=== PATIENT | female | born 1960 | race Caucasian/White ===

== ENCOUNTER 2019-04-05 14:41 | Observation (INO) | payer BC ==
[2019-04-05] MEDS ORDERED: Nitroglycerin 2% Ointment 1 INCH/1 GM Packet ONE (15:09)
[2019-04-05 15:59] LABS: Troponin I Less than 0.010 ng/mL (< 0.028)
[2019-04-05] MEDS ORDERED: Ondansetron ODT 4 MG TAB SL PRN (17:35)
[2019-04-05] MEDS ORDERED: Ondansetron PF 4 MG/2 ML Vial IVP PRN (17:35)
[2019-04-05 17:45] VITALS: BMI 26.3
[2019-04-05] MEDS ORDERED: Senokot S 8.6-50 MG TAB PO PRN (18:19)
[2019-04-05] MEDS ORDERED: Melatonin 3 MG TAB PO PRN (18:22)
[2019-04-05] MEDS: Primidone 50 MG TAB PO SCH (21:07)
[2019-04-05] MEDS: Famotidine 20 MG TAB PO SCH (21:07)
--- NOTE | 2019-04-06 03:17 | HP ---
CHIEF COMPLAINT: Chest pain. HISTORY OF PRESENT ILLNESS: Ms. Yañez is a 59-year-old female, who presented to the emergency room of [facility], complaining of chest pain. Reports that chest pain started earlier this morning, is intermittent, radiates up to her left arm, back and neck. Reports that she feels like she cannot take a deep breath. Reports the pain is most severe in the substernal area associated with dyspnea on exertion. Denies any diaphoresis. EKG in the emergency room showed sinus martha, beats per minute 55, ST segment T-waves normal. In the emergency room in [place], initial EKG showed T-waves inverted in V1, V2, V3. She was given aspirin and nitroglycerin and sent to [facility] for evaluation and admission. PAST MEDICAL HISTORY: Pertinent for hypertension, has had breast cancer treated with chemotherapy, radiation 12 years ago. PAST SURGICAL HISTORY: Lumpectomy x2, cholecystectomy. SOCIAL HISTORY: Drinks socially about twice a month. Denies any drug use. She is a former tobacco smoker, smokes cigarettes. Quit smoking several years ago. ALLERGIES: NONE. CURRENT MEDICATIONS: 1. Lisinopril 40 mg p.o. once a day. 2. Metoprolol 50 mg p.o. daily. 3. Primidone 50 mg p.o. b.i.d. 4. Thyroid 30 mg p.o. q.a.m. REVIEW OF SYSTEMS: Chest pain substernal with radiation to left arm, neck across chest, shortness of breath. Denies fever or chills. Denies any palpitations. Denies diaphoresis. All systems reviewed and negative unless mentioned in the HPI. PHYSICAL EXAMINATION: VITAL SIGNS: Temperature is 97.7, pulse is 63, respirations 20, PO2 sats are 100% on room air, blood pressure is 139/63. CONSTITUTIONAL: The patient is alert and oriented to person, place, and time. Appears in no distress. HEENT: Eyes; pupils are equal, round, and reactive to light. Extraocular muscles are intact. ENT; mouth exam is normal. Mucous membranes are moist. CARDIOVASCULAR: S1 and S2. Heart sounds are normal. RESPIRATORY/CHEST: Breath sounds are clear. Chest expansion is equal. NECK: Normal range of motion. Trachea is midline. ABDOMEN: Nontender. Bowel sounds are heard. BACK: Normal inspection and normal range of motion. EXTREMITIES: Upper extremities, normal range of motion. Motor strength is normal. Radial pulses equal. Lower extremity, normal inspection. Normal range of motion. Pedal pulses equal bilaterally. There is no calf tenderness on palpation. NEUROLOGIC: The patient is alert and oriented to person, place, and time. Speech is normal. SKIN: Warm, dry, normal in color. Chest x-ray shows no acute process. PERTINENT LABORATORY DATA: White blood cell count 4.9, hemoglobin 12.1, hematocrit 36.7, and platelet count is 261. Sodium is 138, potassium 4.0, chloride 104, gap is 14, BUN is 19, creatinine is 0.86. Estimated GFR 68, magnesium is 2.5, calcium is 9.5. Liver enzymes are unremarkable. ASSESSMENT AND PLAN: 1. Chest pain. Troponins will be trended. Stress test with nuclear medicine ordered. We will keep the patient on heart monitor overnight. 2. Hypertension we will restart home medications. 3. Hypothyroidism. We will restart home medications. Check TSH and free T3 and T4. 4. Essential tremor. Continue home medication. 5. Deep venous thrombosis and gastrointestinal prophylaxis will be started. 6. Hospital course is dependent on clinical findings. Job ID: [id number]
[2019-04-06 06:07] LABS: #Eosinphils 0.4 thou/uL (0.0-0.7); #Lymphocytes 0.8 thou/uL (1.20-3.40); #Monocytes 0.5 thou/uL (0.11-0.59); %Basophils 0.9 % (0.0-1.0); %Eosinophils 7.5 % (0.0-10.0); %Lymphocytes 16.3 % (21.0-51.0); %Monocytes 11.1 % (0.0-10.0); %Neutrophils 64.2 % (42.0-75.0); Hemoglobin 11.7 g/dL (12.0-16.0); Mean Corpuscular HGB CONC 34.5 g/dL (32.0-36.0); Mean Corpuscular Hemoglobin 31.7 pg (27.0-31.0); Mean Platelet Volume 6.2 fL (7.4-10.4); Platelet Count 228 thou/uL (130-400); RBC Distribution Width 11.6 % (11.5-14.5); Red Blood Cell (RBC) Count 3.68 mill/uL (4.20-5.40); White Blood Cell (WBC) Count 4.7 thou/uL (4.8-10.8)
[2019-04-06 06:34] LABS: Anion Gap 9 mmol/L (10-20); BUN (Urea Nitrogen) 21 mg/dL (9.8-20.1); Calc. Creatinine Clearance 80 mL/min (70-130); Calcium 9.5 mg/dL (7.8-10.44); Carbon Dioxide 27 mmol/L (22-29); Cardiac Risk 3.8 (Less than 4.5); Chloride 105 mmol/L (98-107); Cholesterol 192 mg/dl (< 200 Desired); Estimated GFR-MDRD 63; Glucose 99 mg/dL (70-105); HDL Cholesterol 50 mg/dL (>60 Neg Risk); LDL Cholesterol, Calculated 115 mg/dL; Lipase 53 U/L (8-78); Potassium 4.3 mmol/L (3.5-5.1); Sodium 137 mmol/L (136-145); Triglycerides 137 mg/dL (Less than 150)
[2019-04-06 06:51] LABS: Free T4 (Free Thyroxine) 0.87 ng/dL (0.70-1.48); Thyroid Stimulating Hormone 1.7724 uIU/mL (0.35-4.94)
[2019-04-06] MEDS ORDERED: Aspirin 325 MG TAB PO SCH (09:00)
[2019-04-06] MEDS ORDERED: Enoxaparin Sodium 40 MG/0.4 ML SYRINGE SC SCH (09:00)
[2019-04-06] MEDS ORDERED: Lisinopril 20 MG TAB PO SCH (09:00)
[2019-04-06] MEDS ORDERED: Thyroid 30 MG TAB PO SCH (09:00)
[2019-04-06] MEDS ORDERED: ADENOSINE 60 MG/20 ML VIAL ONE (09:03)
[2019-04-06] MEDS: Famotidine 20 MG TAB PO SCH (10:25)
[2019-04-06] MEDS: Primidone 50 MG TAB PO SCH (10:25)
--- NOTE | 2019-04-06 10:26 | NM ---
NUCLEAR MEDICINE CARDIAC MYOCARDIAL PERFUSION SPECT EJECTION FRACTION STUDY WALL MOTION CINE: DATE: 04/06/2019 HISTORY: 59-year-old female with hypertension and history of tobacco use presents with chest pain. TECHNIQUE: Number of days:1 Rest study: Technetium 99m-sestamibi (Cardiolite) dose:11.0 mCi Pharmacologic stress: Adenosine dose:42.6 mg Stress study: Technetium 99m-sestamibi (Cardiolite) dose:33.0 mCi FINDINGS: Cardiac (myocardial perfusion) SPECT There are no fixed or reversible myocardial perfusion defects. Ejection fraction study Left ventricular EF = 82% Wall motion cine Normal IMPRESSION: Normal.
[2019-04-06 12:03] VITALS: BP 125/59; TEMP 97.7
--- NOTE | 2019-04-06 17:04 | DIS ---
DATE OF ADMISSION: 04/05/2019 DATE OF DISCHARGE: 04/06/2019 CHIEF COMPLAINT ON ADMISSION: Chest pain. DISCHARGE DIAGNOSES: 1. Chest pain, noncardiac, MPI negative for ischemia, I suspect esophageal spasm or reflux. 2. Hypertension. 3. Hypothyroidism. 4. Essential tremor. BRIEF HOSPITAL COURSE: The patient is a pleasant 59-year-old female with past medical history significant for tobacco abuse, who quit 10 years ago, hypertension, and hypothyroidism, who presented to the hospital with complaints of chest pain. The patient states she was sleeping when the chest pain came on. It was sharp and radiated toward the back. She felt as if she could not get a deep breath in. It was nonexertional. She had no associated diaphoresis, palpitations, or dizziness. She presented to the ER for further workup and treatment. Her EKG was normal and showed no evidence of ischemia to arrival in the [facility]. She was transferred from [place]. Her serial enzymes were negative. The patient underwent nuclear stress test, which showed normal left ventricular systolic function and no evidence of ischemia. Her chest discomfort has steadily improved. She has tolerated a full diet. She has no nausea or vomiting. DISCHARGE DISPOSITION: Home. DISCHARGE CONDITION: Stable. DISCHARGE INSTRUCTIONS AND FOLLOWUP: I have instructed the patient that she needs to follow up with her primary care physician. I have placed her on Nexium daily as a new home medication, as I suspect her symptoms may be GI related. Other possibility does include coronary vasospasms. In any case, the patient's symptoms have resolved, she feels improved, ACS was ruled out, and stress test is negative for ischemia. She will be discharged home in good condition today. She will continue her other home medications and aggressive risk factor modification. Job ID: [id number]
--- NOTE | 2019-04-09 01:07 | EKG ---
Test Reason : CHEST PAIN Blood Pressure : / mmHG Vent. Rate : 055 BPM Atrial Rate : 055 BPM P-R Int : 182 ms QRS Dur : 080 ms QT Int : 406 ms P-R-T Axes : 050 046 060 degrees QTc Int : 388 ms Sinus bradycardia Otherwise normal ECG Confirmed by MARIA TERESA GONZALEZ ([id number]), newspaper editor managing MARIBETH VALERIO ([id number]) on 04/09/2019 1:06:47 AM Referred By: Confirmed By:MARIA TERESA GONZALEZ
== END 2019-04-06 13:28 | disposition home or self-care (01) ==
LOC: ERS 14:41 → 2SW 17:40
PROVIDERS: ADMIT Internal Medicine; ATTEND Internal Medicine
DX: R07.2 Precordial pain (principal); I10 Essential (primary) hypertension; E03.9 Hypothyroidism, unspecified; G25.0 Essential tremor; R00.1 Bradycardia, unspecified; Z87.891 Personal history of nicotine dependence; Z88.5 Allergy status to narcotic agent; Z88.6 Allergy status to analgesic agent; Z79.899 Other long term (current) drug therapy
CPT/HCPCS: 36415; 78452; 80048; 80061; 83690; 84439; 84443; 84481; 85025; 93005; 93017; 96372; 99406; A9500; G0378; J0153; J1650

== ENCOUNTER 2020-04-24 09:14 | Outpatient (CLI) | payer OTHER ==
--- NOTE | 2020-04-24 10:41 | MMO ---
Bilateral MAMMO Bilat Diag DDI+LIS. CLINICAL HISTORY: Patient is 60 years old and is seen for diagnostic exam and lump or thickening in the right breast. The patient has the following family history of breast cancer: maternal grandmother, malignant (generic). The patient has a history of invasive ductal right breast carcinoma at age 47. The patient has a history of right Ultrasound Guided Core Biopsy at age 47 - malignant and right Lumpectomy at age 47 - malignant. VIEWS: The views performed were: bilateral craniocaudal with tomosynthesis; bilateral mediolateral oblique with tomosynthesis; bilateral mediolateral with tomosynthesis; right mediolateral oblique spot compression with tomosynthesis; and right exaggerated craniocaudal spot compression with tomosynthesis. FILMS COMPARED: The present examination has been compared to prior imaging studies performed at [place] on 04/27/2012 and 04/24/2020. This study has been interpreted with the assistance of computer-aided detection. MAMMOGRAM FINDINGS: There are scattered fibroglandular densities. There is a new irregular mass seen in the right breast at 10 o'clock. US of the 10:00 right breast shows a shadowing mass corresponding to mammo finding. In the left breast, there are no suspicious masses, calcifications or areas of architectural distortion. IMPRESSION: NEW MASS IN THE RIGHT BREAST IS HIGHLY SUGGESTIVE OF MALIGNANCY. AN ULTRASOUND-GUIDED BREAST BIOPSY IS RECOMMENDED. THE RESULTS OF THIS EXAM WERE SENT TO THE PATIENT. ACR BI-RADS Category 5 - Highly suggestive of malignancy - appropriate action should be taken D/W pt in person @ 10:32 am MAMMOGRAPHY NOTE: 1. A negative mammogram report should not delay a biopsy if a dominant of clinically suspicious mass is present. 2. Approximately 10% to 15% of breast cancers are not detected by mammography. 3. Adenosis and dense breasts may obscure an underlying neoplasm. Reported by: RAMIRO HOWARD MD Electonically Signed: [id number]
--- NOTE | 2020-04-24 10:51 | ULT ---
RIGHT BREAST ULTRASOUND: HISTORY: Palpable mass at the 10 o'clock position of the right breast. The patient has had right breast cance r in the past. FINDINGS: Correlation is made with the mammogram of the same day. Sonographic evaluation of the region of palpable concern demonstrates a shadowing a 9 mm shadowing ma ss at the 10 o'clock position of the right breast 6 cm from the nipple and corresponding to the mammo graphic finding. Sonographic evaluation of the right axilla demonstrates no abnormal lymph nodes. IMPRESSION: BIRADS category 5: highly suggestive of malignancy. Ultrasound-guided biopsy is recommended. Discussed in person with the patient at 10:32 a.m. CODE CR POS: OFF
--- NOTE | 2020-04-24 14:03 | MMO ---
FILMS COMPARED: The present examination has been compared to prior imaging studies performed at 04/27/2012 and 04/24/2020. MAMMOGRAM FINDINGS: There is a new biopsy clip seen in the right breast at 10 o'clock. IMPRESSION: NEW BIOPSY CLIP IN THE RIGHT BREAST IS CONFIRMED UTILIZING POST PROCEDURE MAMMOGRAM. Reported by: RAMIRO HOWARD MD Electonically Signed: [id number]
--- NOTE | 2020-04-24 15:00 | ULT ---
Exam: Right breast biopsy with ultrasound guidance HISTORY: Past medical history of right breast cancer. Patient had a palpable lump has occurred in the last 2-3 weeks. COMPARISON: 04/24/2020 FINDINGS: Successful right breast biopsy with ultrasound guidance. A total of 4 14-gauge core biopsy samples were obtained. Lesional tissue was placed directly in formalin. Postbiopsy clip was placed. TECHNIQUE: Consent obtained to perform a right breast biopsy with ultrasound guidance. Right breast w as prepped and draped in sterile fashion. 1% lidocaine, buffered with sodium bicarbonate was used for local anesthesia. Under no definite guidance, a total of 4, 14-gauge core biopsy samples were obt ained. Lesional tissue was placed directly in formalin. Biopsy clip was placed under ultrasound guidance. Postprocedure mammogram demonstrates appropriate clip position. IMPRESSION: Successful right breast biopsy with ultrasound guidance. Final pathologic diagnosis is pe nding.
== END 2020-04-24 09:15 | disposition home or self-care (01) ==
LOC: BICMAMMO 09:14
PROVIDERS: ATTEND Family Medicine
DX: N63.11 Unspecified lump in the right breast, upper outer quadrant (principal); C50.411 Malignant neoplasm of upper-outer quadrant of right female breast
CPT/HCPCS: 19083; 77066; 88305; 88341; 88342; G0279

== ENCOUNTER 2020-05-09 13:25 | Outpatient (CLI) | payer OTHER ==
--- NOTE | 2020-05-09 14:47 | CT ---
CT CHEST WITHOUT CONTRAST: 05/09/20 Axial tomograms obtained through chest without contrast. Low dose screening protocol was followed. INDICATION: Lung cancer screening. History of smoking for many years/nicotine dependence. FINDINGS: The lungs show mild chronic change with hyperexpansion and mild peripheral interstitial thickening. N o evidence of lung mass or nodule. No evidence of effusion or infiltrate. Mediastinum unremarkable. Upper abdomen unremarkable. Osseous structures unremarkable. IMPRESSION: Lung RADS 2 - benign findings. Recommend annual low dose screening chest CT. POS: [facility]
== END 2020-05-09 13:26 | disposition home or self-care (01) ==
LOC: BICCT 13:25
PROVIDERS: ATTEND Internal Medicine Hematology & Oncology
DX: Z12.2 Encounter for screening for malignant neoplasm of respiratory organs (principal); Z87.891 Personal history of nicotine dependence
CPT/HCPCS: G0297

== ENCOUNTER 2020-06-21 06:31 | Outpatient (CLI) | payer BC, OTHER ==
[2020-06-21 14:09] LABS: #Eosinphils 0.2 thou/uL (0.0-0.7); #Monocytes 0.5 thou/uL (0.11-0.59); #Neutrophils 2.8 thou/uL (1.40-6.50); %Basophils 0.8 % (0.0-1.0); %Eosinophils 5.6 % (0.0-10.0); %Lymphocytes 21.5 % (21.0-51.0); %Monocytes 10.5 % (0.0-10.0); %Neutrophils 61.7 % (42.0-75.0); Mean Corpuscular HGB CONC 34.2 g/dL (32.0-36.0); Mean Corpuscular Hemoglobin 32.7 pg (27.0-31.0); Mean Corpuscular Volume 95.6 fL (78.0-98.0); Mean Platelet Volume 6.7 fL (7.4-10.4); Platelet Count 264 thou/uL (130-400); RBC Distribution Width 11.9 % (11.5-14.5); Red Blood Cell (RBC) Count 3.99 mill/uL (4.20-5.40); White Blood Cell (WBC) Count 4.5 thou/uL (4.8-10.8)
[2020-06-21 14:44] LABS: Anion Gap 17 mmol/L (10-20); BUN (Urea Nitrogen) 13 mg/dL (9.8-20.1); Calc. Creatinine Clearance 0 mL/min (70-130); Calcium 9.4 mg/dL (7.8-10.44); Carbon Dioxide 22 mmol/L (22-29); Chloride 105 mmol/L (98-107); Estimated GFR-MDRD 69; Glucose 92 mg/dL (70-105); Potassium 4.7 mmol/L (3.5-5.1); Sodium 139 mmol/L (136-145)
[2020-06-22 14:47] LABS: SARS-CoV-2 MS2 Positive; SARS-CoV-2 N Gene Negative; SARS-CoV-2 S Gene Negative; SARS-CoV-2 by NAA Not Detected (NotDetected); SARS-CoV-2 orf1ab Negative
--- NOTE | 2020-06-24 15:40 | EKG ---
Test Reason : Blood Pressure : / mmHG Vent. Rate : 053 BPM Atrial Rate : 053 BPM P-R Int : 154 ms QRS Dur : 076 ms QT Int : 418 ms P-R-T Axes : 027 029 053 degrees QTc Int : 392 ms Sinus bradycardia Otherwise normal ECG No previous ECGs available Confirmed by ELISABET LOPEZ M.D. ([id number]) on 06/24/2020 3:40:06 PM Referred By: DEBBIE Confirmed By:ELISABET LOPEZ M.D.
== END 2020-06-21 06:32 | disposition home or self-care (01) ==
LOC: LABBT 06:31
PROVIDERS: ATTEND Specialist
DX: Z01.818 Encounter for other preprocedural examination (principal); Z20.828 Contact with and (suspected) exposure to other viral communicable diseases; C50.911 Malignant neoplasm of unspecified site of right female breast
CPT/HCPCS: 80048; 85025; 87635; 93005; 93010; U0003

== ENCOUNTER 2020-06-25 07:33 | Day surgery (SDC) | payer BC ==
[2020-06-21 10:21] VITALS: BMI 27.1
[2020-06-25] MEDS ORDERED: Acetaminophen 500 MG TAB ONE (09:10)
[2020-06-25] MEDS ORDERED: Ketorolac Tromethamine 30 MG/ML VIAL ONE (09:11)
[2020-06-25] MEDS ORDERED: Fentanyl 100 MCG/2 ML VIAL ONE ×2 (09:35→11:07)
--- NOTE | 2020-06-25 10:16 | NM ---
Radionucleotide lymphoscintigraphy right breast HISTORY: Right breast cancer. FINDINGS: Patient was injected with a total volume 1 cc containing 430 uCi technetium 99m filtered zhou lfur colloid intradermally at these periareolar 12:00, 3:00, 6:00, and 9:00 right breast. Imaging performed. Immediate images show an intense focus of uptake over the axillary tail of the rig ht breast. Adjacent, more subtle foci of uptake are also present at the superior aspect of the breast extending to the axillary tail. Patient tolerated the procedure well and was sent to day surgery in good condition. IMPRESSION : [place] lymph node axillary tail right breast.
[2020-06-25] MEDS ORDERED: Isosulfan Blue 50 MG/5 ML VIAL ONE (11:04)
[2020-06-25] MEDS ORDERED: Lidocaine 1% w/Epinephrine 1:100K 20 ML VIAL ONE (11:04)
[2020-06-25] MEDS ORDERED: Bupivacaine 0.25% HCL 30 ML VIAL ONE (11:04)
[2020-06-25] MEDS ORDERED: Ondansetron PF 4 MG/2 ML Vial ONE ×2 (13:40→14:19)
[2020-06-25] MEDS ORDERED: Lidocaine 1% PF 5 ML VIAL ONE (14:19)
[2020-06-25] MEDS ORDERED: EPHEDRINE 25 MG/5 ML SYRINGE ONE (14:19)
[2020-06-25] MEDS ORDERED: Dexamethasone 20 MG/5 ML VIAL ONE (14:19)
[2020-06-25] MEDS ORDERED: PROPOFOL 200 MG/20 ML VIAL ONE (14:19)
[2020-06-25] MEDS ORDERED: Glycopyrrolate 0.2 MG/ML 5 ML SYRINGE ONE (14:19)
--- NOTE | 2020-06-26 13:15 | OP ---
DATE OF PROCEDURE: 06/25/2020 PREOPERATIVE DIAGNOSIS: Ultrasound-guided needle localization, right breast needle localized lumpectomy, right axillary sentinel lymph node biopsy. ANESTHESIA: General endotracheal. INDICATIONS: Patient is a 60-year-old white female. She had previously undergone right breast cancer surgery with a lumpectomy and sentinel lymph node biopsy performed through the same incision in the upper outer right breast and axilla. She was recently found to have a recurrent malignancy very near to the prior operative site. After discussion of options, she preferred to proceed with a repeat lumpectomy and sentinel lymph node biopsy. It was determined that she would likely be able to tolerate an appropriate course of postoperative radiation therapy. DESCRIPTION OF OPERATION: Informed consent was obtained. Patient did undergo lymphoscintigraphy, which clearly demonstrated sentinel lymph nodes within the right axilla. Right breast was prepped with ChloraPrep and draped in a sterile fashion to include the axilla. The area of the malignancy within the upper outer right breast was marked on the skin in a grid fashion. I then identified the areas of the sentinel nodes with the Neoprobe. I had hoped to potentially use her prior incision to again perform the lumpectomy and sentinel node biopsy, but the confirmation was such that it did not work well nor would it work well to utilize a single incision for both procedures and I therefore decided to perform the two procedures through two separate incisions. Attention was turned to the axilla. Local anesthetic was infiltrated and a transverse incision was created at the inferior aspect of the axilla. Dissection was carried through skin and subcutaneous tissue and into the axilla. Neoprobe was utilized to identify areas of maximum radio intensity. I was also able to identify blue dye within the axilla. I carefully dissected three separate sentinel lymph nodes. All investing tissue was divided between clamps and 3-0 silk ties and the nodes were passed off the field. These were submitted for permanent evaluation. None of them appeared to be grossly abnormal. The wound was closed in layers with 3-0 and 4-0 Monocryl and additional local anesthetic was infiltrated during closure. Dermabond was placed externally. Attention was turned to the breast. Ultrasound was utilized to place a localizing needle in a medial to lateral fashion through the identified malignancy. A skin incision was created based on needle insertion site. Dissection carried through skin and subcutaneous tissue. I continued to use ultrasound through the operation to confirm the location of the malignancy relative to the dissection. A wide core of tissue was obtained around the localizing wire and the specimen was removed intact. Marking sutures were placed for tissue orientation and it is submitted for mammogram. This showed removal of the clip within the specimen. The wound was irrigated and meticulous hemostasis was obtained. The wound was closed in layers with 3-0 and 4-0 Monocryl and Dermabond was placed externally. Additional local anesthetic was infiltrated during closure. There were no complications with either portion of the procedure. She tolerated it well and was taken to recovery room in stable condition. Job ID: [id number]
== END 2020-06-25 14:50 | disposition home or self-care (01) ==
LOC: SDC 07:33
PROVIDERS: ATTEND Specialist
PROC: 07B50ZX Excision of Right Axillary Lymphatic, Open Approach, Diagnostic (ICD-10-PCS; principal; 2020-06-25)
PROC: 0HBT0ZZ Excision of Right Breast, Open Approach (ICD-10-PCS; principal; 2020-06-25)
DX: C50.411 Malignant neoplasm of upper-outer quadrant of right female breast (principal); C77.3 Secondary and unspecified malignant neoplasm of axilla and upper limb lymph nodes; K21.9 Gastro-esophageal reflux disease without esophagitis; Z17.0 Estrogen receptor positive status [ER+]; Z87.891 Personal history of nicotine dependence; Z79.899 Other long term (current) drug therapy; Z88.5 Allergy status to narcotic agent; Z88.6 Allergy status to analgesic agent
CPT/HCPCS: 76098; 78195; 88307; 88342; A9541; J0690; J1100; J1885; J2405; J2704; J3010; Q9968; S0020

== ENCOUNTER 2020-07-18 08:37 | Outpatient (CLI) | payer BC ==
--- NOTE | 2020-07-18 11:25 | MRI ---
MRI LEFT SHOULDER: DATE: 07/18/2020. PROVIDED CLINICAL HISTORY: Left shoulder pain. FINDINGS: Evaluation is limited by patient motion. There is high-grade partial thickness undersurface tearing involving the posterior distal supraspinat us tendon at the footplate. The components of the rotator cuff appear otherwise intact. The long he ad biceps tendon appears intact and normally located. The glenoid labrum and glenohumeral articular cartilage are suboptimally evaluated in the absence of joint distention. There is signal alteration in the region of the superior labrum suspicious for a S LAP tear. There is a small glenohumeral joint effusion. There is noncircumscribed patchy signal alt eration on fluid-sensitive sequences about the axillary recess with a somewhat thickened and indistin ct appearance to the inferior glenohumeral ligament. Acromioclavicular osteoarthrosis is demonstrated without significant mass effect upon the subjacent s upraspinatus. There is greater than physiologic subacromial subdeltoid bursal fluid. No focal concerning regional marrow or muscular signal abnormality is evident. Rotator cuff muscular volume appears preserved. IMPRESSION: 1. At least high-grade partial thickness undersurface tear involving the distal posterior supraspina tus tendon at the footplate. Greater than physiologic subacromial subdeltoid bursal fluid may reflec t an occult full-thickness component to this tear versus bursitis. 2. Findings suspicious for a SLAP tear. 3. Findings compatible with adhesive capsulitis. 4. Small glenohumeral joint effusion. POS: [facility]
== END 2020-07-18 08:38 | disposition home or self-care (01) ==
LOC: SCSMRI 08:37
PROVIDERS: ATTEND Family Medicine
DX: M25.512 Pain in left shoulder (principal); M25.412 Effusion, left shoulder; M75.112 Incomplete rotator cuff tear or rupture of left shoulder, not specified as traumatic

== ENCOUNTER 2020-08-12 07:22 | Outpatient (CLI) | payer BC, OTHER ==
[2020-08-12 15:21] LABS: #Eosinphils 0.3 10x3/uL (0.0-0.5); #Monocytes 0.5 10x3/uL (0.0-1.1); #Neutrophils 3.4 10x3/uL (1.5-8.4); %Basophils 0.6 % (0.0-2.0); %Eosinophils 5.5 % (0.0-6.0); %Lymphocytes 21.8 % (18.0-47.0); %Monocytes 9.2 % (0.0-10.0); %Neutrophils 62.5 % (40.0-75.0); Hemoglobin 12.4 g/dL (12.0-16.0); Mean Corpuscular HGB CONC 33.9 G/DL (32.0-36.0); Mean Corpuscular Hemoglobin 31.9 PG (27.0-33.0); Mean Corpuscular Volume 94.1 fl (80.0-100.0); Platelet Count 258 10x3/uL (130-400); RBC Distribution Width 12.4 % (11.5-14.5); Red Blood Cell (RBC) Count 3.89 10x6/uL (3.90-5.20); White Blood Cell (WBC) Count 5.4 10x3/uL (4.5-11.0)
[2020-08-12 15:27] LABS: Anion Gap 15 mmol/L (10-20); BUN (Urea Nitrogen) 17 mg/dL (9.8-20.1); Calc. Creatinine Clearance 0 mL/min (70-130); Carbon Dioxide 25 mmol/L (22-29); Chloride 105 mmol/L (98-107); Estimated GFR-MDRD 75; Glucose 87 mg/dL (70-105); Potassium 4.2 mmol/L (3.5-5.1); Sodium 141 mmol/L (136-145)
[2020-08-13 13:38] LABS: SARS-CoV-2 MS2 Positive; SARS-CoV-2 N Gene Negative; SARS-CoV-2 S Gene Negative; SARS-CoV-2 by NAA Not Detected (NotDetected); SARS-CoV-2 orf1ab Negative
== END 2020-08-12 07:23 | disposition home or self-care (01) ==
LOC: LABBT 07:22
PROVIDERS: ATTEND Specialist
DX: Z01.812 Encounter for preprocedural laboratory examination (principal); C50.911 Malignant neoplasm of unspecified site of right female breast; Z20.828 Contact with and (suspected) exposure to other viral communicable diseases
CPT/HCPCS: 80048; 85025; 87635; U0003

== ENCOUNTER 2020-08-14 10:53 | Day surgery (SDC) | payer BC ==
[2020-08-13 11:43] VITALS: BMI 25.8
[~2020-08-14 10:53] MED LIST: Lidocaine 1% PF 5 ML VIAL ONE; PROPOFOL 200 MG/20 ML VIAL ONE; ePHEDrine 50 MG/ML VIAL ONE
[2020-08-14] MEDS ORDERED: Fentanyl 100 MCG/2 ML VIAL ONE (12:09)
[2020-08-14] MEDS ORDERED: Midazolam HCl 2 mg/2 ml Vial ONE (12:09)
[2020-08-14] MEDS ORDERED: Ketorolac Tromethamine 30 MG/ML VIAL ONE (12:19)
[2020-08-14] MEDS ORDERED: Acetaminophen 500 MG TAB ONE (12:19)
[2020-08-14] MEDS ORDERED: EPINEPHrine 1 MG/ML AMP ONE (12:23)
[2020-08-14] MEDS ORDERED: Bupivacaine 0.25% HCL 30 ML VIAL ONE (12:23)
[2020-08-14] MEDS ORDERED: Lidocaine 1% (PF) 30 ML VIAL ONE (12:23)
--- NOTE | 2020-08-14 14:53 | RAD ---
EXAM: CHEST ONE VIEW HISTORY: Mediport placement. COMPARISON: 04/05/2019 FINDINGS: Left subclavian Mediport catheter is noted in place with the tip overlying the expected location of c avoatrial junction. Cardiac silhouette is magnified by projection. The lungs are clear. No pneumothorax or pleural effusion is identified. No other interval change. IMPRESSION: Interval placement of a left-sided Mediport catheter without evidence of a pneumothorax.
--- NOTE | 2020-08-15 14:02 | OP ---
DATE OF PROCEDURE: 08/14/2020 PREOPERATIVE DIAGNOSIS: Breast cancer. POSTOPERATIVE DIAGNOSIS: Breast cancer. OPERATION PERFORMED: Placement of left subclavian standard-sized power compatible MediPort. ANESTHESIA: Total intravenous anesthesia with local using 0.25% Marcaine with epinephrine. INDICATIONS: Patient is a 60-year-old white female, who was recently diagnosed with recurrent right breast cancer. MediPort placement is requested for chemotherapy administration. DESCRIPTION OF OPERATION: Informed consent was obtained. The patient was taken to the operating room where total intravenous anesthesia was obtained with the patient in supine position. Right periclavicular area was prepped with ChloraPrep and draped in sterile fashion. Local anesthetic was infiltrated and a large-gauge needle was passed under the clavicle in the subclavian vein. Guidewire was passed through the needle and fluoroscopically confirmed to enter the superior vena cava. Additional local anesthetic was infiltrated and transverse incision was created based on needle insertion site. A subcutaneous pocket was dissected inferiorly. Introducer dilator was passed over the guidewire under fluoroscopic guidance. The guidewire and dilator were removed, and the catheter was passed through the introducer. The tip of the catheter was positioned at the atriocaval junction and the catheter was trimmed to the appropriate length and secured to the locking hub of the MediPort. The port was then placed in the subcutaneous pocket where it was secured to the pectoral fascia with 2 interrupted sutures of 3-0 Prolene. The incision was then closed in layers with 3-0 and 4-0 Monocryl. Additional local anesthetic was infiltrated. The port was cannulated with a Johnson needle and it aspirated blood freely and was flushed with heparinized saline. Dermabond was placed externally on the skin incision. There were no complications. Blood loss was negligible. The patient tolerated the procedure well and was taken to recovery room in stable condition. FINDINGS: I used a low-profile power compatible MediPort. The patient's anatomy was within normal limits and there were no problems during the procedure. A standard size port was selected secondary to the patient's body habitus. It was placed uneventfully into the left subclavian vein. Fluoroscopy was used throughout the procedure. There was essentially no blood loss and no complications. Patient tolerated the procedure well. Postprocedure chest x-ray shows good position of the port and catheter. Job ID: [id number]
== END 2020-08-14 16:09 | disposition home or self-care (01) ==
LOC: SDC 10:53
PROVIDERS: ATTEND Specialist
PROC: 02HV33Z Insertion of Infusion Device into Superior Vena Cava, Percutaneous Approach (ICD-10-PCS; principal; 2020-08-14)
DX: C50.911 Malignant neoplasm of unspecified site of right female breast (principal); K21.9 Gastro-esophageal reflux disease without esophagitis; Z79.899 Other long term (current) drug therapy; Z87.891 Personal history of nicotine dependence; Z88.5 Allergy status to narcotic agent
CPT/HCPCS: 71045; C1788; J0171; J0690; J1642; J1885; J2001; J2250; J2704; J3010; J3490; S0020

== ENCOUNTER → 2024-11-07 | Day surgery (SDC) | payer BC | LOC: BICULT 12:06 | PROVIDERS: ATTEND Family Medicine | PROC: 0HB5XZX Excision of Chest Skin, External Approach, Diagnostic (ICD-10-PCS; principal; 2024-11-07) | DX: C50.411 Malignant neoplasm of upper-outer quadrant of right female breast (principal); Z85.3 Personal history of malignant neoplasm of breast | CPT/HCPCS: 19083; 88305; 88341; 88342 ==